=== PATIENT | female | born 1955 | race Caucasian/White ===

== ENCOUNTER → 2024-02-23 18:48 | Outpatient (REF) | payer OTHER, SELFPAY | LOC: DHSLP 18:48 | PROVIDERS: ATTENDING PHYSICIAN Internal Medicine; FAMILY PHYSICIAN Family Medicine | DX: G47.33 Obstructive sleep apnea (adult) (pediatric) (principal) | CPT/HCPCS: 95800 ==

== ENCOUNTER → 2024-05-07 11:56 | Outpatient (REF) | payer OTHER, SELFPAY | LOC: PAVMRI 11:56 | PROVIDERS: ATTENDING PHYSICIAN Family Medicine Sports Medicine; FAMILY PHYSICIAN Family Medicine | DX: M87.051 Idiopathic aseptic necrosis of right femur (principal); M84.351A Stress fracture, right femur, initial encounter for fracture; M16.11 Unilateral primary osteoarthritis, right hip | CPT/HCPCS: 73721 ==

== ENCOUNTER → 2024-12-13 13:03 | Outpatient (REF) | payer OTHER, SELFPAY | LOC: HWRAD 13:03 | PROVIDERS: ATTENDING PHYSICIAN Family Medicine | DX: Z78.0 Asymptomatic menopausal state (principal) | CPT/HCPCS: 77080 ==

== ENCOUNTER → 2025-01-30 14:08 | Outpatient (REF) | payer OTHER, SELFPAY | LOC: RAD 14:08 | PROVIDERS: ATTENDING PHYSICIAN Surgery; FAMILY PHYSICIAN Family Medicine | DX: K57.92 Diverticulitis of intestine, part unspecified, without perforation or abscess without bleeding (principal) | CPT/HCPCS: 74177; Q9967 ==

== ENCOUNTER 2025-03-15 06:41 | Day surgery (SDC) | payer OTHER, SELFPAY ==
[2025-03-09 13:21] VITALS: BMI 33.2
[2025-03-15] VITALS (8 sets, daily range): BP systolic 146–206; BP diastolic 50–131; BMI 33.2
[2025-03-15] MEDS: NORMOSOL-R/PLASMALYTE-A 1000 IV (10:49)
[2025-03-15 10:56] LABS: Glucose - Point of Care 123 mg/dl (70-99)
[2025-03-15 12:47] LABS: Glucose - Point of Care 110 mg/dl (70-99)
[2025-03-15 15:17] LABS: Glucose - Point of Care 95 mg/dl (70-99)
[2025-03-15] MEDS: ROXICODONE 5 MG PO (16:46)
[2025-03-20 18:58] LABS: Stone Analysis Mass 5 mg
== END 2025-03-15 16:50 | disposition home or self-care (01) ==
LOC: SDS 06:41
PROVIDERS: ATTENDING PHYSICIAN Student in an Organized Health Care Education/Training Program; FAMILY PHYSICIAN Family Medicine
DX: N20.2 Calculus of kidney with calculus of ureter (principal)
CPT/HCPCS: 52356; 36415; 74018; 76000; 82365; 82962; 93005; A4300; C1758; C1894; C2617

== ENCOUNTER → 2025-03-23 14:09 | Outpatient (REF) | payer OTHER, SELFPAY | LOC: RAD 14:09 | PROVIDERS: ATTENDING PHYSICIAN Internal Medicine; FAMILY PHYSICIAN Family Medicine | DX: R50.9 Fever, unspecified (principal); J06.9 Acute upper respiratory infection, unspecified; N20.0 Calculus of kidney | CPT/HCPCS: 71046 ==